=== PATIENT | female | born 1950 | race Caucasian/White ===

== ENCOUNTER → 2016-08-14 | Outpatient (REF) | payer MEDICARE | LOC: M SFHCPLAZ 16:08 | PROVIDERS: ATTEND Nurse Practitioner Family | DX: N76.0 Acute vaginitis (principal); Z12.4 Encounter for screening for malignant neoplasm of cervix | CPT/HCPCS: 87070; 87077; G0101; G0123 ==

== ENCOUNTER → 2016-11-13 | Outpatient (REF) | payer MEDICARE ==
[2016-11-13 13:48] LABS: CALCIUM OXALATE CRYSTALS SMALL
== END ==
LOC: M LAB REF 12:23
PROVIDERS: ATTEND Physician Assistant
DX: R10.2 Pelvic and perineal pain (principal)

== ENCOUNTER → 2016-11-18 | Outpatient (REF) | payer MEDICARE ==
[2016-11-18 17:39] LABS: CALCIUM OXALATE CRYSTALS LARGE
== END ==
LOC: M LAB REF 17:01
PROVIDERS: ATTEND Physician Assistant Medical
DX: N39.0 Urinary tract infection, site not specified (principal)

== ENCOUNTER → 2017-01-27 | Outpatient (REF) | payer MEDICARE ==
[2017-01-27 12:16] LABS: ALBUMIN 3.5 GM/DL (3.2-5.2); ALBUMIN/GLOBULIN RATIO 1.09 (1.00-1.93); ALKALINE PHOSPHATASE 119 U/L (45-117); ALT/SGPT 35 U/L (12-78); ANION GAP 9 MEQ/L (8-16); AST/SGOT 19 U/L (15-37); BILIRUBIN,TOTAL 0.6 MG/DL (0.2-1.0); BLOOD UREA NITROGEN 17 MG/DL (7-18); CARBON DIOXIDE LEVEL 27 MEQ/L (21-32); CHLORIDE LEVEL 109 MEQ/L (98-107); CHOLESTEROL LEVEL 99 MG/DL (<200); CREATININE FOR GFR 0.73 MG/DL (0.55-1.02); GLOMERULAR FILTRATION RATE > 60.0 (>45); GLUCOSE, FASTING 124 MG/DL (80-110); POTASSIUM SERUM 4.2 MEQ/L (3.5-5.1); SODIUM LEVEL 145 MEQ/L (136-145); TOTAL PROTEIN 6.7 GM/DL (6.4-8.2); TRIGLYCERIDES LEVEL 225 MG/DL (<150)
== END ==
LOC: M SFHCPLAZ 07:58
PROVIDERS: ATTEND Nurse Practitioner Family
DX: I25.10 Atherosclerotic heart disease of native coronary artery without angina pectoris (principal); E55.9 Vitamin D deficiency, unspecified

== ENCOUNTER → 2017-07-24 | Outpatient (REF) | payer MEDICARE ==
[2017-07-24 12:43] LABS: ALBUMIN 4.1 GM/DL (3.2-5.2); ALBUMIN/GLOBULIN RATIO 1.37 (1.00-1.93); ALKALINE PHOSPHATASE 128 U/L (45-117); ALT/SGPT 30 U/L (12-78); ANION GAP 7 MEQ/L (8-16); AST/SGOT 18 U/L (7-37); BILIRUBIN,TOTAL 0.7 MG/DL (0.2-1.0); BLOOD UREA NITROGEN 17 MG/DL (7-18); CALCIUM LEVEL 9.1 MG/DL (8.8-10.2); CARBON DIOXIDE LEVEL 31 MEQ/L (21-32); CHLORIDE LEVEL 108 MEQ/L (98-107); CREATININE FOR GFR 0.74 MG/DL (0.55-1.30); GLOMERULAR FILTRATION RATE > 60.0 (>45); GLUCOSE, FASTING 109 MG/DL (70-100); POTASSIUM SERUM 4.3 MEQ/L (3.5-5.1); SODIUM LEVEL 146 MEQ/L (136-145); TOTAL PROTEIN 7.1 GM/DL (6.4-8.2)
== END ==
LOC: M SFHCPLAZ 09:34
DX: I25.10 Atherosclerotic heart disease of native coronary artery without angina pectoris (principal)
CPT/HCPCS: 80053

== ENCOUNTER → 2017-08-04 | Outpatient (CLI) | payer MEDICARE | LOC: M RAD 09:57 | DX: R05 Cough (principal) | CPT/HCPCS: 71046 ==

== ENCOUNTER → 2017-08-07 | Outpatient (CLI) | payer MEDICARE | LOC: M RAD 09:08 | DX: Z12.2 Encounter for screening for malignant neoplasm of respiratory organs (principal); R91.8 Other nonspecific abnormal finding of lung field; Z87.891 Personal history of nicotine dependence | CPT/HCPCS: G0297 ==

== ENCOUNTER → 2017-10-27 | Outpatient (REF) | payer MEDICARE ==
[2017-10-27 12:57] LABS: ALBUMIN 3.7 GM/DL (3.2-5.2); ALBUMIN/GLOBULIN RATIO 1.16 (1.00-1.93); ALKALINE PHOSPHATASE 110 U/L (45-117); ALT/SGPT 31 U/L (12-78); ANION GAP 7 MEQ/L (8-16); AST/SGOT 19 U/L (7-37); BILIRUBIN,TOTAL 0.5 MG/DL (0.2-1.0); BLOOD UREA NITROGEN 17 MG/DL (7-18); CALCIUM LEVEL 9.1 MG/DL (8.8-10.2); CARBON DIOXIDE LEVEL 30 MEQ/L (21-32); CHLORIDE LEVEL 110 MEQ/L (98-107); CREATININE FOR GFR 0.74 MG/DL (0.55-1.30); GLOMERULAR FILTRATION RATE > 60.0 (>45); GLUCOSE, FASTING 110 MG/DL (70-100); POTASSIUM SERUM 3.9 MEQ/L (3.5-5.1); SODIUM LEVEL 147 MEQ/L (136-145); TOTAL PROTEIN 6.9 GM/DL (6.4-8.2)
[2017-10-28 10:20] LABS: TOTAL 25(OH) VITAMIN D 21.8 NG/ML (30.0-100.0)
== END ==
LOC: M SFHCPLAZ 09:45
DX: E55.9 Vitamin D deficiency, unspecified (principal); I10 Essential (primary) hypertension
CPT/HCPCS: 80053

== ENCOUNTER → 2017-11-14 | Outpatient (CLI) | payer MEDICARE ==
[2017-11-14 09:20] LABS: CREATININE FOR GFR 0.77 MG/DL (0.55-1.30); GLOMERULAR FILTRATION RATE > 60.0 (>45)
[2017-11-14 09:20] LABS: BLOOD UREA NITROGEN 14 MG/DL (7-18)
== END ==
LOC: M LAB 08:20
DX: R91.8 Other nonspecific abnormal finding of lung field (principal)
CPT/HCPCS: 82565

== ENCOUNTER → 2017-11-17 | Outpatient (CLI) | payer MEDICARE ==
[~2017-11-17] MED LIST: ISOVUE-370 76% 100ML VIAL (Q9967) As Ordered
== END ==
LOC: M RAD 12:31
DX: R91.8 Other nonspecific abnormal finding of lung field (principal)
CPT/HCPCS: Q9967

== ENCOUNTER → 2018-01-29 | Outpatient (CLI) | payer MEDICARE ==
[2018-01-29 10:15] LABS: ALBUMIN 3.8 GM/DL (3.2-5.2); ALBUMIN/GLOBULIN RATIO 1.12 (1.00-1.93); ALKALINE PHOSPHATASE 100 U/L (45-117); ALT/SGPT 46 U/L (12-78); ANION GAP 7 MEQ/L (8-16); AST/SGOT 25 U/L (7-37); BILIRUBIN,TOTAL 0.6 MG/DL (0.2-1.0); BLOOD UREA NITROGEN 18 MG/DL (7-18); CALCIUM LEVEL 8.5 MG/DL (8.8-10.2); CARBON DIOXIDE LEVEL 29 MEQ/L (21-32); CHLORIDE LEVEL 109 MEQ/L (98-107); CHOLESTEROL LEVEL 127 MG/DL (<200); CHOLESTEROL RISK RATIO 3.527 (<5); CREATININE FOR GFR 0.78 MG/DL (0.55-1.30); GLOMERULAR FILTRATION RATE > 60.0 (>45); GLUCOSE, FASTING 114 MG/DL (70-100); HDL CHOLESTEROL 36 MG/DL (>40); LDL CHOLESTEROL 31.2 MG/DL (<100); NON-HDL-C 91 MG/DL; POTASSIUM SERUM 4.4 MEQ/L (3.5-5.1); SODIUM LEVEL 145 MEQ/L (136-145); TOTAL PROTEIN 7.2 GM/DL (6.4-8.2); TRIGLYCERIDES LEVEL 299 MG/DL (<150)
[2018-01-29 10:22] LABS: MALB URINE SIEMENS 57.8 MG/L; MAU/CREAT RATIO 44.8 MCG/MG (0.0-30.0)
[2018-01-29 14:01] LABS: TOTAL 25(OH) VITAMIN D 35.5 NG/ML (30.0-100.0)
== END ==
LOC: M LAB 09:31
DX: I11.9 Hypertensive heart disease without heart failure (principal); E55.9 Vitamin D deficiency, unspecified
CPT/HCPCS: 80053

== ENCOUNTER → 2018-02-02 | Outpatient (REF) | payer MEDICARE ==
[2018-02-02 12:50] LABS: ALBUMIN 3.8 GM/DL (3.2-5.2); ALBUMIN/GLOBULIN RATIO 1.19 (1.00-1.93); ALKALINE PHOSPHATASE 104 U/L (45-117); ALT/SGPT 48 U/L (12-78); ANION GAP 8 MEQ/L (8-16); AST/SGOT 25 U/L (7-37); BILIRUBIN,TOTAL 0.5 MG/DL (0.2-1.0); BLOOD UREA NITROGEN 17 MG/DL (7-18); CALCIUM LEVEL 9.2 MG/DL (8.8-10.2); CARBON DIOXIDE LEVEL 28 MEQ/L (21-32); CHLORIDE LEVEL 111 MEQ/L (98-107); CHOLESTEROL LEVEL 125 MG/DL (<200); CHOLESTEROL RISK RATIO 3.906 (<5); CREATININE FOR GFR 0.72 MG/DL (0.55-1.30); GLOMERULAR FILTRATION RATE > 60.0 (>45); GLUCOSE, FASTING 113 MG/DL (70-100); HDL CHOLESTEROL 32 MG/DL (>40); LDL CHOLESTEROL 19.4 MG/DL (<100); NON-HDL-C 93 MG/DL; POTASSIUM SERUM 3.8 MEQ/L (3.5-5.1); SODIUM LEVEL 147 MEQ/L (136-145); TRIGLYCERIDES LEVEL 368 MG/DL (<150)
[2018-02-02 13:09] LABS: MALB URINE SIEMENS 60.6 MG/L; MAU/CREAT RATIO 38.8 MCG/MG (0.0-30.0)
== END ==
LOC: M SFHCPLAZ 09:26
DX: E55.9 Vitamin D deficiency, unspecified (principal); I10 Essential (primary) hypertension; I25.10 Atherosclerotic heart disease of native coronary artery without angina pectoris
CPT/HCPCS: 80053

== ENCOUNTER → 2018-03-18 | Outpatient (REF) | payer MEDICARE | LOC: M SFHCLERA 13:10 | DX: C43.62 Malignant melanoma of left upper limb, including shoulder (principal) | CPT/HCPCS: 88305 ==

== ENCOUNTER → 2018-04-28 | Outpatient (REF) | payer MEDICARE | LOC: M LAB REF 16:04 | DX: C43.62 Malignant melanoma of left upper limb, including shoulder (principal) | CPT/HCPCS: 88305 ==

== ENCOUNTER → 2018-05-11 | Outpatient (REF) | payer MEDICARE ==
[2018-05-11 12:51] LABS: ALBUMIN 3.7 GM/DL (3.2-5.2); ALBUMIN/GLOBULIN RATIO 1.32 (1.00-1.93); ALKALINE PHOSPHATASE 94 U/L (45-117); ALT/SGPT 36 U/L (12-78); ANION GAP 5 MEQ/L (8-16); AST/SGOT 18 U/L (7-37); BILIRUBIN,TOTAL 0.4 MG/DL (0.2-1.0); BLOOD UREA NITROGEN 14 MG/DL (7-18); CALCIUM LEVEL 9.2 MG/DL (8.8-10.2); CARBON DIOXIDE LEVEL 30 MEQ/L (21-32); CHLORIDE LEVEL 108 MEQ/L (98-107); CREATININE FOR GFR 0.77 MG/DL (0.55-1.30); GLOMERULAR FILTRATION RATE > 60.0 (>45); GLUCOSE, FASTING 131 MG/DL (70-100); POTASSIUM SERUM 4.5 MEQ/L (3.5-5.1); SODIUM LEVEL 143 MEQ/L (136-145); TOTAL 25(OH) VITAMIN D 33.3 NG/ML (30.0-100.0); TOTAL PROTEIN 6.5 GM/DL (6.4-8.2)
== END ==
LOC: M SFHCPLAZ 09:03
DX: I10 Essential (primary) hypertension (principal); E55.9 Vitamin D deficiency, unspecified
CPT/HCPCS: 80053

== ENCOUNTER → 2018-06-24 | Outpatient (REF) | payer MEDICARE | LOC: M SFHCPLAZ 11:11 | PROVIDERS: ATTEND Dermatology | DX: C43.62 Malignant melanoma of left upper limb, including shoulder (principal); L90.5 Scar conditions and fibrosis of skin; L57.0 Actinic keratosis ==

== ENCOUNTER → 2018-08-04 | Outpatient (REF) | payer MEDICARE | LOC: M SFHCPLAZ 09:57 | PROVIDERS: ATTEND Dermatology | DX: D23.62 Other benign neoplasm of skin of left upper limb, including shoulder (principal) ==

== ENCOUNTER → 2018-09-01 | Outpatient (REF) | payer MEDICARE ==
[2018-09-01 13:40] LABS: ALT/SGPT 34 U/L (12-78); BILIRUBIN,TOTAL 0.5 MG/DL (0.2-1.0); BLOOD UREA NITROGEN 17 MG/DL (7-18); CARBON DIOXIDE LEVEL 27 MEQ/L (21-32); CHLORIDE LEVEL 109 MEQ/L (98-107); CREATININE FOR GFR 0.71 MG/DL (0.55-1.30); GLOMERULAR FILTRATION RATE > 60.0 (>45); GLUCOSE, FASTING 108 MG/DL (70-100); POTASSIUM SERUM 4.5 MEQ/L (3.5-5.1); SODIUM LEVEL 144 MEQ/L (136-145); TOTAL 25(OH) VITAMIN D 29.7 NG/ML (30.0-100.0)
== END ==
LOC: M SFHCPLAZ 09:21
PROVIDERS: ATTEND Nurse Practitioner Family
DX: I10 Essential (primary) hypertension (principal); E55.9 Vitamin D deficiency, unspecified

== ENCOUNTER → 2018-09-17 | Outpatient (REF) | payer MEDICARE | LOC: M SFHCPLAZ 16:17 | PROVIDERS: ATTEND Nurse Practitioner Family | DX: L65.9 Nonscarring hair loss, unspecified (principal); Z53.8 Procedure and treatment not carried out for other reasons ==

== ENCOUNTER → 2018-09-18 | Outpatient (REF) | payer MEDICARE ==
[2018-09-18 12:20] LABS: ALT/SGPT 35 U/L (12-78); BILIRUBIN,TOTAL 0.6 MG/DL (0.2-1.0); BLOOD UREA NITROGEN 20 MG/DL (7-18); CALCIUM LEVEL 9.1 MG/DL (8.8-10.2); CARBON DIOXIDE LEVEL 29 MEQ/L (21-32); CHLORIDE LEVEL 109 MEQ/L (98-107); CHOLESTEROL LEVEL 128 MG/DL (<200); CHOLESTEROL RISK RATIO 3.368 (<5); GLOMERULAR FILTRATION RATE > 60.0 (>45); GLUCOSE, FASTING 112 MG/DL (70-100); HDL CHOLESTEROL 38 MG/DL (>40); LDL CHOLESTEROL 64 MG/DL (<100); NON-HDL-C 90 MG/DL; POTASSIUM SERUM 4.6 MEQ/L (3.5-5.1); SODIUM LEVEL 145 MEQ/L (136-145); TOTAL 25(OH) VITAMIN D 34.6 NG/ML (30.0-100.0); TOTAL PROTEIN 6.7 GM/DL (6.4-8.2); TRIGLYCERIDES LEVEL 131 MG/DL (<150)
[2018-09-18 12:36] LABS: MALB URINE SIEMENS 50.1 MG/L; MAU/CREAT RATIO 47.2 MCG/MG (0.0-30.0)
== END ==
LOC: M SFHCPLAZ 09:14
PROVIDERS: ATTEND Nurse Practitioner Family
DX: I10 Essential (primary) hypertension (principal); I25.10 Atherosclerotic heart disease of native coronary artery without angina pectoris; E55.9 Vitamin D deficiency, unspecified

== ENCOUNTER → 2018-09-24 | Outpatient (REF) | payer MEDICARE | LOC: M SFHCPLAZ 18:01 | PROVIDERS: ATTEND Dermatology | DX: D23.5 Other benign neoplasm of skin of trunk (principal) ==

== ENCOUNTER → 2019-01-06 | Outpatient (REF) | payer MEDICARE | LOC: M SFHCPLAZ 18:04 | PROVIDERS: ATTEND Dermatology | DX: L81.4 Other melanin hyperpigmentation (principal) ==

== ENCOUNTER → 2019-01-18 | Outpatient (REF) | payer MEDICARE ==
[2019-01-18 12:18] LABS: HEMATOCRIT 44.8 % (36.0-47.0); HEMOGLOBIN 14.8 g/dl (12.0-15.5); MEAN CORPUSCULAR HEMOGLOBIN 30.6 pg (27.0-33.0); MEAN CORPUSCULAR VOLUME 92.6 fl (80.0-96.0); PLATELET COUNT, AUTOMATED 189 10^3/uL (150-450); RED BLOOD COUNT 4.84 10^6/uL (4.00-5.40); WHITE BLOOD COUNT 8.4 10^3/uL (4.0-10.0)
[2019-01-18 12:51] LABS: THYROID STIMULATING HORMONE 0.646 uIU/ML (0.358-3.740)
== END ==
LOC: M SFHCPLAZ 10:23
PROVIDERS: ATTEND Nurse Practitioner Family
DX: L65.9 Nonscarring hair loss, unspecified (principal)

== ENCOUNTER → 2019-01-21 | Outpatient (REF) | payer MEDICARE ==
[2019-01-21 13:23] LABS: HEMOGLOBIN A1c 6.8 %
[2019-01-21 13:38] LABS: ALT/SGPT 34 U/L (12-78); BILIRUBIN,TOTAL 0.5 MG/DL (0.2-1.0); BLOOD UREA NITROGEN 16 MG/DL (7-18); CALCIUM LEVEL 9.5 MG/DL (8.8-10.2); CARBON DIOXIDE LEVEL 30 MEQ/L (21-32); CHLORIDE LEVEL 109 MEQ/L (98-107); CREATININE FOR GFR 0.74 MG/DL (0.55-1.30); GLOMERULAR FILTRATION RATE > 60.0 (>45); GLUCOSE, FASTING 107 MG/DL (70-100); POTASSIUM SERUM 3.8 MEQ/L (3.5-5.1); SODIUM LEVEL 143 MEQ/L (136-145); TOTAL PROTEIN 6.7 GM/DL (6.4-8.2)
== END ==
LOC: M SFHCPLAZ 10:27
PROVIDERS: ATTEND Nurse Practitioner Family
DX: I10 Essential (primary) hypertension (principal); I25.10 Atherosclerotic heart disease of native coronary artery without angina pectoris; R73.01 Impaired fasting glucose

== ENCOUNTER 2019-05-23 09:14 | Emergency (ER) | payer MEDICARE ==
[~2019-05-23] VITALS: Ht 162.6 cm; Wt 72.7 kg
--- NOTE | 2019-05-23 10:00 | ECGEPIP ---
[facility] - ED Test Date: 2019-05-23 Pat Name: VINICIUS DELACRUZ Department: Room: - Gender: Female Nurse'S Assistant: cameron : 1950 Requested By: Jo Perez Order Number: [id number] Reading MD: Jo Perez Measurements Intervals [place] Rate: 57 P: 61 TX: 157 QRS: 4 QRSD: 86 T: 34 QT: 404 QTc: 394 Interpretive Statements SINUS BRADYCARDIA WITH MARKED SINUS ARRHYTHMIA INTERPRETATION BASED ON A DEFAULT AGE OF 40 YEARS PRIOR ACUTE ISCHEMIA INFERIOR 02/13/15 Electronically Signed on 05-23-2019 10:00:30 EST by Jo Perez
[2019-05-23 10:04] LABS: BASO % 0.4 % (0.0-1.0); EOS # 0.1 10^3/uL (0.0-0.5); EOS % 0.8 % (0.0-3.0); HEMATOCRIT 44.1 % (36.0-47.0); HEMOGLOBIN 14.2 g/dl (12.0-15.5); LYMPH # 1.9 10^3/uL (1.5-5.0); LYMPH % 25.5 % (24.0-44.0); MEAN CORPUSCULAR HEMOGLOBIN 29.9 pg (27.0-33.0); MEAN CORPUSCULAR HGB CONC 32.2 g/dl (32.0-36.5); MEAN CORPUSCULAR VOLUME 92.8 fl (80.0-96.0); MONO # 0.6 10^3/uL (0.0-0.8); MONO % 7.5 % (0.0-5.0); NEUTROPHILS # 4.7 10^3/uL (1.5-8.5); NEUTROPHILS % 65.1 % (36.0-66.0); PLATELET COUNT, AUTOMATED 159 10^3/uL (150-450); RED BLOOD COUNT 4.75 10^6/uL (4.00-5.40); WHITE BLOOD COUNT 7.3 10^3/uL (4.0-10.0)
[2019-05-23 10:37] LABS: ALBUMIN 3.5 GM/DL (3.2-5.2); ALT/SGPT 36 U/L (12-78); BILIRUBIN,DIRECT < 0.1 MG/DL (0.0-0.2); BILIRUBIN,TOTAL 0.4 MG/DL (0.2-1.0); BLOOD UREA NITROGEN 15 MG/DL (7-18); CALCIUM LEVEL 8.7 MG/DL (8.8-10.2); CARBON DIOXIDE LEVEL 29 MEQ/L (21-32); CHLORIDE LEVEL 110 MEQ/L (98-107); CK-MB VALUE MASS < 1.0 NG/ML (<3.6); CPK CREATINE PHOSPHOKINASE 77 U/L (26-192); CREATININE FOR GFR 0.85 MG/DL (0.55-1.30); FREE T4 0.94 NG/DL (0.76-1.46); GLOMERULAR FILTRATION RATE > 60.0 (>45); GLUCOSE, FASTING 172 MG/DL (70-100); SODIUM LEVEL 145 MEQ/L (136-145); THYROID STIMULATING HORMONE 0.476 uIU/ML (0.358-3.740); TOTAL PROTEIN 6.4 GM/DL (6.4-8.2); TROPONIN I < 0.02 NG/ML (< 0.10)
[2019-05-23 11:27] VITALS: BP 178/79
[2019-05-23 11:53] LABS: HEMOGLOBIN A1c 6.1 %
== END 2019-05-23 11:31 | disposition home or self-care (01) ==
LOC: M ED 09:14
DX: R53.83 Other fatigue (principal); I25.10 Atherosclerotic heart disease of native coronary artery without angina pectoris; I21.9 Acute myocardial infarction, unspecified; Z95.5 Presence of coronary angioplasty implant and graft; Z86.14 Personal history of Methicillin resistant Staphylococcus aureus infection; Z85.820 Personal history of malignant melanoma of skin; Z87.891 Personal history of nicotine dependence; Z91.048 Other nonmedicinal substance allergy status

== ENCOUNTER 2019-08-10 10:11 | Day surgery (SDC) | payer MEDICARE ==
[~2019-08-10] VITALS: Ht 162.6 cm; Wt 71.7 kg
[~2019-08-10 10:11] MED LIST changes: +ASPI81TA85 PO; +BRONCHW PO; +D 202000 PO; +HYDR-3363 PO; -ISOVUE-370 76% 100ML VIAL (Q9967) As Ordered; +LOSA25TA14 PO; +METF500T13 PO; +METO25TA4 PO; +NITR0.4S14 SL; +SIMV40TA20 PO; +VITA100066 PO; +VITA500T PO
[2019-08-10] MEDS ORDERED: NS 1,000 ML IV ONE (11:00)
[2019-08-10] MEDS ORDERED: LIDOCAINE 2% INJ 100 MG/5 ML SDV (FOR ANES.) As Ordered ONE (12:10)
[2019-08-10] MEDS ORDERED: propofoL 500 MG/50 ML VIAL As Ordered ONE ×2 (12:10→12:45)
--- NOTE | 2019-08-10 12:50 | ROOR ---
Patient Name: Laura Hector Procedure Date: 08/10/2019 12:05 PM Date of : 1950 Age: 68 Room: [facility] Gender: Female Note Status: Finalized Procedure: Colonoscopy Indications: High risk colon cancer surveillance: Personal history of colonic polyps, Last colonoscopy: February 2016 Providers: Edy TOBIN MD Referring MD: Krysten Lee Do, [facility] Requesting Provider: Medicines: Monitored Anesthesia Care Complications: No immediate complications. Procedure: Pre-Anesthesia Assessment: - The heart rate, respiratory rate, oxygen saturations, blood pressure, adequacy of pulmonary ventilation, and response to care were monitored throughout the procedure. The Colonoscope was introduced through the anus and advanced to 5 cm into the ileum. The colonoscopy was performed without difficulty. The patient tolerated the procedure well. The quality of the bowel preparation was good. Findings: The perianal and digital rectal examinations were normal. Four semi-pedunculated polyps were found in the sigmoid colon. The polyps were 4 to 9 mm in size. These polyps were removed with a hot snare. Resection and retrieval were complete. Five sessile polyps were found in the rectum. The polyps were diminutive in size. These polyps were removed with a cold snare. Resection and retrieval were complete. Four sessile polyps were found in the ascending colon. The polyps were diminutive in size. These polyps were removed with a cold snare. Resection and retrieval were complete. Mild sigmoid diverticulosis and small internal hemorrhoids. Impression: - Four 4 to 9 mm polyps in the sigmoid colon, removed with a hot snare. Resected and retrieved. - Five diminutive polyps in the rectum, removed with a cold snare. Resected and retrieved. - Four diminutive polyps in the ascending colon, removed with a cold snare. Resected and retrieved. - Mild sigmoid diverticulosis and small internal hemorrhoids. Recommendation: - Telephone endoscopist for pathology results in 2 weeks. - If the pathology report reveals adenomatous tissue, then repeat the colonoscopy for surveillance in 3 years. - No ibuprofen, naproxen, or other non-steroidal anti-inflammatory drugs for 10 days after polyp removal. Edy Tobin MD Edy TOBIN MD 08/10/2019 12:50:11 PM Electronically signed by Edy TOBIN MD Number of Addenda: 0 Note Initiated On: 08/10/2019 12:05 PM Estimated Blood Loss: Estimated blood loss: none.
[2019-08-10 13:10] VITALS: BP 130/69
== END 2019-08-10 16:57 | disposition home or self-care (01) ==
LOC: M OPP 10:11
PROVIDERS: ATTEND Internal Medicine Gastroenterology
DX: Z12.11 Encounter for screening for malignant neoplasm of colon (principal); Z86.010 Personal history of colon polyps; D12.5 Benign neoplasm of sigmoid colon; D12.2 Benign neoplasm of ascending colon; K62.1 Rectal polyp; K57.30 Diverticulosis of large intestine without perforation or abscess without bleeding; K64.8 Other hemorrhoids; I34.2 Nonrheumatic mitral (valve) stenosis; Z95.5 Presence of coronary angioplasty implant and graft; I25.2 Old myocardial infarction; Z79.82 Long term (current) use of aspirin; Z79.899 Other long term (current) drug therapy; Z91.040 Latex allergy status; Z91.048 Other nonmedicinal substance allergy status

== ENCOUNTER → 2019-08-24 | Outpatient (REF) | payer MEDICARE | LOC: M SFHCPLAZ 15:02 | PROVIDERS: ATTEND Family Medicine | DX: R73.03 Prediabetes (principal); I10 Essential (primary) hypertension; Z13.220 Encounter for screening for lipoid disorders ==

== ENCOUNTER → 2019-11-29 | Outpatient (REF) | payer MEDICARE ==
[~2019-11-29] MED LIST changes: +VITA-243 PO; -VITA500T PO
[2019-11-29 11:22] LABS: ALBUMIN 3.9 GM/DL (3.2-5.2); ALT/SGPT 30 U/L (12-78); BILIRUBIN,TOTAL 0.5 MG/DL (0.2-1.0); BLOOD UREA NITROGEN 14 MG/DL (7-18); CALCIUM LEVEL 9.5 MG/DL (8.8-10.2); CARBON DIOXIDE LEVEL 33 MEQ/L (21-32); CHLORIDE LEVEL 108 MEQ/L (98-107); CHOLESTEROL LEVEL 115 MG/DL (<200); CHOLESTEROL RISK RATIO 3.382 (<5); CREATININE FOR GFR 0.75 MG/DL (0.55-1.30); GLOMERULAR FILTRATION RATE > 60.0 (>39); GLUCOSE, FASTING 112 MG/DL (70-100); HDL CHOLESTEROL 34 MG/DL (>40); LDL CHOLESTEROL 42 MG/DL (<100); NON-HDL-C 81 MG/DL; POTASSIUM SERUM 3.7 MEQ/L (3.5-5.1); SODIUM LEVEL 144 MEQ/L (136-145); TOTAL PROTEIN 6.9 GM/DL (6.4-8.2); TRIGLYCERIDES LEVEL 194 MG/DL (<150)
[2019-11-29 13:01] LABS: HEMOGLOBIN A1c 6.5 %
== END ==
LOC: M SFHCPLAZ 09:50
PROVIDERS: ATTEND Family Medicine
DX: R73.03 Prediabetes (principal); I10 Essential (primary) hypertension; Z13.220 Encounter for screening for lipoid disorders

== ENCOUNTER → 2019-12-14 | Outpatient (REF) | payer MEDICARE | LOC: M LAB REF 17:42 | PROVIDERS: ATTEND Dermatology | DX: L72.9 Follicular cyst of the skin and subcutaneous tissue, unspecified (principal) ==

== ENCOUNTER → 2020-01-11 | Outpatient (REF) | payer MEDICARE ==
[~2020-01-11] MED LIST changes: -ASPI81TA85 PO; +ASPI81TA86 PO
== END ==
LOC: M LAB REF 15:36
PROVIDERS: ATTEND Dermatology
DX: S29.022A Laceration of muscle and tendon of back wall of thorax, initial encounter (principal); X58.XXXA Exposure to other specified factors, initial encounter; Y92.89 Other specified places as the place of occurrence of the external cause

== ENCOUNTER → 2020-05-18 | Outpatient (CLI) | payer MEDICARE ==
[2020-05-18 17:20] LABS: ALBUMIN 3.7 GM/DL (3.2-5.2); ALT/SGPT 39 U/L (12-78); BILIRUBIN,TOTAL 0.4 MG/DL (0.2-1.0); BLOOD UREA NITROGEN 16 MG/DL (7-18); CALCIUM LEVEL 9.3 MG/DL (8.8-10.2); CARBON DIOXIDE LEVEL 29 MEQ/L (21-32); CHLORIDE LEVEL 107 MEQ/L (98-107); CHOLESTEROL LEVEL 125 MG/DL (<200); CHOLESTEROL RISK RATIO 3.906 (<5); CREATININE FOR GFR 0.92 MG/DL (0.55-1.30); GLOMERULAR FILTRATION RATE > 60.0 (>39); GLUCOSE, FASTING 207 MG/DL (70-100); HDL CHOLESTEROL 32 MG/DL (>40); LDL CHOLESTEROL 26 MG/DL (<100); NON-HDL-C 93 MG/DL; POTASSIUM SERUM 4.4 MEQ/L (3.5-5.1); SODIUM LEVEL 142 MEQ/L (136-145); TOTAL PROTEIN 6.7 GM/DL (6.4-8.2); TRIGLYCERIDES LEVEL 337 MG/DL (<150)
[2020-05-18 20:31] LABS: HEMOGLOBIN A1c 6.8 %
== END ==
LOC: M PLALAB 09:50
PROVIDERS: ATTEND Student in an Organized Health Care Education/Training Program
DX: I25.10 Atherosclerotic heart disease of native coronary artery without angina pectoris (principal); I10 Essential (primary) hypertension; E11.9 Type 2 diabetes mellitus without complications

== ENCOUNTER → 2020-08-28 | Outpatient (CLI) | payer MEDICARE ==
[2020-08-28 10:53] LABS: ALBUMIN 3.9 GM/DL (3.2-5.2); ALT/SGPT 32 U/L (12-78); BILIRUBIN,TOTAL 0.5 MG/DL (0.2-1.0); BLOOD UREA NITROGEN 12 MG/DL (7-18); CALCIUM LEVEL 9.1 MG/DL (8.8-10.2); CARBON DIOXIDE LEVEL 32 MEQ/L (21-32); CHLORIDE LEVEL 111 MEQ/L (98-107); CHOLESTEROL LEVEL 127 MG/DL (<200); CHOLESTEROL RISK RATIO 3.735 (<5); CREATININE FOR GFR 0.74 MG/DL (0.55-1.30); GLOMERULAR FILTRATION RATE > 60.0 (>39); GLUCOSE, FASTING 132 MG/DL (70-100); HDL CHOLESTEROL 34 MG/DL (>40); LDL CHOLESTEROL 49 MG/DL (<100); NON-HDL-C 93 MG/DL; POTASSIUM SERUM 4.6 MEQ/L (3.5-5.1); SODIUM LEVEL 145 MEQ/L (136-145); TRIGLYCERIDES LEVEL 222 MG/DL (<150)
== END ==
LOC: M PLALAB 08:21
PROVIDERS: ATTEND Student in an Organized Health Care Education/Training Program
DX: I10 Essential (primary) hypertension (principal); E11.9 Type 2 diabetes mellitus without complications

== ENCOUNTER → 2020-11-17 | Outpatient (REF) | payer MEDICARE | LOC: M LAB REF 14:01 | PROVIDERS: ATTEND Physician Assistant | DX: L57.0 Actinic keratosis (principal) ==

== ENCOUNTER → 2020-11-22 | Outpatient (REF) | payer MEDICARE ==
[2020-11-22 19:18] LABS: MAU/CREAT RATIO 82.4 MCG/MG (0.0-30.0)
[2020-11-22 20:22] LABS: HEMOGLOBIN A1c 6.2 %
== END ==
LOC: M SFHCPLAZ 11:44
PROVIDERS: ATTEND Student in an Organized Health Care Education/Training Program
DX: E11.9 Type 2 diabetes mellitus without complications (principal)

== ENCOUNTER → 2020-12-19 | Outpatient (CLI) | payer MEDICARE ==
--- NOTE | 2020-12-19 10:59 | REP ---
INDICATION: SHOULDER PAIN COMPARISON: None. TECHNIQUE: Three views right shoulder. FINDINGS: There is no evidence of acute fracture, dislocation, or intrinsic bone disease.There is moderate narrowing of the acromioclavicular joint. IMPRESSION: No fracture or dislocation. Degenerative changes acromioclavicular joint. <Electronically signed by Bhupendra Villa > 12/19/20 [id number]
== END ==
LOC: M PLAIMG 10:19
PROVIDERS: ATTEND Student in an Organized Health Care Education/Training Program
DX: M19.011 Primary osteoarthritis, right shoulder (principal); M75.91 Shoulder lesion, unspecified, right shoulder

== ENCOUNTER → 2021-01-04 | Outpatient (REF) | payer MEDICARE | LOC: M LAB REF 17:17 | PROVIDERS: ATTEND Internal Medicine Nephrology | DX: E11.22 Type 2 diabetes mellitus with diabetic chronic kidney disease (principal); E83.42 Hypomagnesemia ==

== ENCOUNTER → 2021-01-17 | Outpatient (CLI) | payer MEDICARE ==
--- NOTE | 2021-01-17 13:36 | REP ---
INDICATION: CALCULUS OF KIDNEY. COMPARISON: Abdomen/pelvis CT dated 08/21/2011. TECHNIQUE: Multiple ultrasonographic images of the kidneys. FINDINGS: The comparison CT demonstrated multiple nonobstructive small bilateral renal calculi in addition to an obstructive calculus in the distal right ureter. On the study today the right kidney measures 9.8 x 5.5 x 5.3 cm. The left kidney measures 10.3 x 4.2 x 5.6 cm. The kidneys are normal size. Renal cortical echogenicity is normal bilaterally. There is no hydronephrosis or hydroureter on the right or the left. There are multiple small echogenic foci in the kidneys bilaterally measuring 6-8 mm in diameter with acoustic shadowing and twinkle artifact, shadow compatible with multiple nonobstructive renal calculi bilaterally. No solid renal masses are identified. Bladder: The bladder is incompletely distended, however, with Doppler ultrasound are able to identify bilateral ureteral jets. IMPRESSION: Multiple small renal calculi bilaterally with no evidence of hydronephrosis on the right or the left. There are bilateral ureteral jets into the bladder. <Electronically signed by Bhupendra Sutherland > 01/17/21 [id number]
== END ==
LOC: M RAD 10:07
PROVIDERS: ATTEND Internal Medicine Nephrology
DX: N20.0 Calculus of kidney (principal)

== ENCOUNTER → 2021-03-26 | Outpatient (REF) | payer MEDICARE ==
[2021-03-26 18:23] LABS: BACTERIA, URINE AUTO NEGATIVE (NEGATIVE); RBC, URINE AUTO 5 /HPF (0-3); SQUAMOUS EPITHELIAL CELL UR AU 1 /HPF (0-6); WBC, URINE AUTO 11 /HPF (0-3)
[2021-03-26 18:26] LABS: TOTAL PROTEIN,RANDOM URINE 17.4 MG/DL (0.0-12.0)
== END ==
LOC: M LAB REF 16:51
PROVIDERS: ATTEND Internal Medicine Nephrology
DX: E11.22 Type 2 diabetes mellitus with diabetic chronic kidney disease (principal); E83.42 Hypomagnesemia

== ENCOUNTER → 2021-04-02 | Outpatient (CLI) | payer MEDICARE ==
[2021-04-02 18:34] LABS: HEMOGLOBIN A1c 6.2 %
[2021-04-02 18:50] LABS: MAU/CREAT RATIO 125.8 MCG/MG (0.0-30.0)
== END ==
LOC: M PLALAB 14:23
PROVIDERS: ATTEND Student in an Organized Health Care Education/Training Program
DX: E55.9 Vitamin D deficiency, unspecified (principal); E11.9 Type 2 diabetes mellitus without complications

== ENCOUNTER → 2021-04-25 | Outpatient (CLI) | payer MEDICARE ==
[2021-04-25 11:08] LABS: APPEARANCE, URINE HAZY (CLEAR); BACTERIA, URINE AUTO NEGATIVE (NEGATIVE); BILIRUBIN, URINE AUTO NEGATIVE (NEGATIVE); BLOOD, URINE BLOOD 2+ (NEGATIVE); COLOR, URINE YELLOW (YELLOW); GLUCOSE, URINE (UA) AUTO NEGATIVE (NEGATIVE); KETONE, URINE AUTO NEGATIVE (NEGATIVE); LEUKOCYTE ESTERASE, URINE AUTO 2+ (NEGATIVE); MUCUS, URINE SMALL (NEGATIVE); NITRITE, URINE AUTO NEGATIVE (NEGATIVE); PROTEIN, URINE AUTO 1+ mg/dL (NEGATIVE); RBC, URINE AUTO 19 /HPF (0-3); SPECIFIC GRAVITY URINE AUTO 1.018 (1.002-1.035); SQUAMOUS EPITHELIAL CELL UR AU 1 /HPF (0-6); UROBILINOGEN, URINE AUTO 0.2 mg/dL (0.0-2.0); WBC, URINE AUTO 15 /HPF (0-3)
[2021-04-25 11:22] LABS: BLOOD UREA NITROGEN 14 MG/DL (7-18); CALCIUM LEVEL 9.4 MG/DL (8.8-10.2); CARBON DIOXIDE LEVEL 31 MEQ/L (21-32); CHLORIDE LEVEL 108 MEQ/L (98-107); CREATININE FOR GFR 0.78 MG/DL (0.55-1.30); GLOMERULAR FILTRATION RATE > 60.0 (>39); GLUCOSE, FASTING 124 MG/DL (70-100); POTASSIUM SERUM 4.3 MEQ/L (3.5-5.1); SODIUM LEVEL 142 MEQ/L (136-145)
== END ==
LOC: M PLALAB 08:59
PROVIDERS: ATTEND Nurse Practitioner Women's Health
DX: R31.29 Other microscopic hematuria (principal)

== ENCOUNTER → 2021-04-30 | Outpatient (CLI) | payer MEDICARE ==
[~2021-04-30] MED LIST changes: +ISOVUE-370 76% 100ML VIAL As Ordered ONE
--- NOTE | 2021-04-30 10:35 | REP ---
INDICATION: HEMATURIA. COMPARISON: 08/21/2011 a noncontrast enhanced exam and of only prior TECHNIQUE: Standard helical technique before and after the intravenous administration of 100 cc Isovue 370. FINDINGS: There are chronic lung base changes status quo. The pre contrast enhanced portion examination again shows numerous bilateral calculi of various sizes. These are too numerous to count or individually assess. They range in size from a mm to a cm. There is no evidence of hydronephrosis or hydroureter. There are numerous bilateral pelvic phleboliths status quo. Multiple metallic radiodensities are again seen in the right posterior Nora renal space status quo. The contrast-enhanced portion examination again shows multiple bilateral renal cysts. There is no evidence of an enhancing renal mass. There is cholelithiasis. The liver, spleen, pancreas, and adrenal glands are within normal limits. The abdominal aorta and para-aortic regions are within normal limits. There is calcific atherosclerotic change. There is no free fluid or free air. There is descending colon and sigmoid colon diverticulosis. The bowel loops and the mesenteries are otherwise unremarkable. 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 The contrast pacified portions of the collecting system bilaterally show no focal filling defects. There is no hydronephrosis. A small portion of each distal ureter is non-opacified likely due to normal peristaltic activity. The a pacified portion of the urinary bladder shows no evidence of a filling defect. Bone window technique throughout the exam shows the osseous structures to be within normal limits for the patient's age. IMPRESSION: 1. Bilateral nonobstructing nephroliths. 2. Bilateral renal cysts. 3. No evidence of an enhancing renal mass or renal collecting system abnormality with findings as described above. 4. Cholelithiasis. 5. Colonic diverticulosis as described above. 6. Other findings as described above. <Electronically signed by Ace Joseph > 04/30/21 [id number]
== END ==
LOC: M RAD 09:40
PROVIDERS: ATTEND Nurse Practitioner Women's Health
DX: R31.9 Hematuria, unspecified (principal)
CPT/HCPCS: 74178; Q9967

== ENCOUNTER → 2021-05-21 | Outpatient (REF) | payer MEDICARE ==
[~2021-05-21] MED LIST changes: -ISOVUE-370 76% 100ML VIAL As Ordered ONE
[2021-05-21 18:29] LABS: AMORPHOUS SEDIMENT SMALL (NEGATIVE); APPEARANCE, URINE HAZY (CLEAR); BACTERIA, URINE AUTO NEGATIVE (NEGATIVE); BILIRUBIN, URINE AUTO NEGATIVE (NEGATIVE); BLOOD, URINE BLOOD 2+ (NEGATIVE); COLOR, URINE YELLOW (YELLOW); GLUCOSE, URINE (UA) AUTO NEGATIVE (NEGATIVE); KETONE, URINE AUTO NEGATIVE (NEGATIVE); LEUKOCYTE ESTERASE, URINE AUTO 3+ (NEGATIVE); MUCUS, URINE SMALL (NEGATIVE); NITRITE, URINE AUTO NEGATIVE (NEGATIVE); PROTEIN, URINE AUTO 1+ mg/dL (NEGATIVE); RBC, URINE AUTO 59 /HPF (0-3); SPECIFIC GRAVITY URINE AUTO 1.018 (1.002-1.035); SQUAMOUS EPITHELIAL CELL UR AU 1 /HPF (0-6); UROBILINOGEN, URINE AUTO 0.2 mg/dL (0.0-2.0); WBC, URINE AUTO 23 /HPF (0-3)
== END ==
LOC: M SMT 17:22
PROVIDERS: ATTEND Urology
DX: R31.29 Other microscopic hematuria (principal)

== ENCOUNTER → 2021-12-25 | Outpatient (REF) | payer MEDICARE ==
[~2021-12-25] MED LIST changes: +LOSA25TA13 PO; -LOSA25TA14 PO
[2021-12-25 21:07] LABS: POTASSIUM SERUM 3.9 MEQ/L (3.5-5.1)
== END ==
LOC: M LAB REF 18:02
PROVIDERS: ATTEND Internal Medicine Nephrology
DX: E11.22 Type 2 diabetes mellitus with diabetic chronic kidney disease (principal); I12.9 Hypertensive chronic kidney disease with stage 1 through stage 4 chronic kidney disease, or unspecified chronic kidney disease

== ENCOUNTER → 2022-01-01 | Outpatient (REF) | payer MEDICARE ==
[2022-01-01 14:16] LABS: APPEARANCE, URINE HAZY (CLEAR); BACTERIA, URINE AUTO 1+ (NEGATIVE); BILIRUBIN, URINE AUTO NEGATIVE (NEGATIVE); BLOOD, URINE BLOOD 2+ (NEGATIVE); COLOR, URINE YELLOW (YELLOW); GLUCOSE, URINE (UA) AUTO NEGATIVE (NEGATIVE); KETONE, URINE AUTO NEGATIVE (NEGATIVE); LEUKOCYTE ESTERASE, URINE AUTO 3+ (NEGATIVE); MUCUS, URINE SMALL (NEGATIVE); NITRITE, URINE AUTO NEGATIVE (NEGATIVE); PROTEIN, URINE AUTO 1+ mg/dL (NEGATIVE); RBC, URINE AUTO 11 /HPF (0-3); SPECIFIC GRAVITY URINE AUTO 1.019 (1.002-1.035); SQUAMOUS EPITHELIAL CELL UR AU 2 /HPF (0-6); UROBILINOGEN, URINE AUTO 0.2 mg/dL (0.0-2.0); WBC, URINE AUTO 32 /HPF (0-3)
== END ==
LOC: M SMT 12:45
PROVIDERS: ATTEND Urology
DX: R31.29 Other microscopic hematuria (principal)

== ENCOUNTER → 2022-05-22 | Outpatient (REF) | payer MEDICARE | LOC: M SFHCDERM 09:13 | PROVIDERS: ATTEND Physician Assistant | DX: D23.62 Other benign neoplasm of skin of left upper limb, including shoulder (principal) ==

== ENCOUNTER → 2022-10-28 | Outpatient (CLI) | payer MEDICARE ==
[2022-10-28 10:42] LABS: HEMOGLOBIN A1c 6.7 % (4.0-6.0)
[2022-10-28 11:02] LABS: ALBUMIN 3.6 G/DL (3.2-5.2); ALKALINE PHOSPHATASE 145 U/L (46-116); ALT/SGPT 35 U/L (7.0-40); AST/SGOT 22 U/L (<34); BILIRUBIN,TOTAL 0.5 MG/DL (0.3-1.2); BLOOD UREA NITROGEN 17 MG/DL (9-23); CALCIUM LEVEL 9.1 MG/DL (8.3-10.6); CARBON DIOXIDE LEVEL 29 MMOL/L (20-31); CHLORIDE LEVEL 108 MMOL/L (98-107); CHOLESTEROL LEVEL 125 MG/DL (<200); CREATININE FOR GFR 0.73 MG/DL (0.55-1.30); GLOMERULAR FILTRATION RATE > 60.0 (>39); GLUCOSE, FASTING 123 MG/DL (74-106); HDL CHOLESTEROL 34.7 MG/DL (>40); LDL CHOLESTEROL 51.5 MG/DL (<100); NON-HDL-C 90.3 MG/DL; POTASSIUM SERUM 4.7 MMOL/L (3.5-5.1); SODIUM LEVEL 143 MMOL/L (136-145); TOTAL PROTEIN 6.4 G/DL (5.7-8.2); TRIGLYCERIDES LEVEL 194 MG/DL (<150)
[2022-10-28 11:03] LABS: TOTAL 25(OH) VITAMIN D 30.3 NG/ML (20.0-100.0)
[2022-10-28 14:23] LABS: CREATININE, URINE 72.6 MG/DL; MAU/CREAT RATIO 107.4 MCG/MG (0.0-30.0)
== END ==
LOC: M PLALAB 08:19
PROVIDERS: ATTEND Student in an Organized Health Care Education/Training Program
DX: I25.10 Atherosclerotic heart disease of native coronary artery without angina pectoris (principal); E55.9 Vitamin D deficiency, unspecified; E11.9 Type 2 diabetes mellitus without complications

== ENCOUNTER → 2022-10-29 | Outpatient (REF) | payer MEDICARE | LOC: M SFHCPLAZ 13:43 | PROVIDERS: ATTEND Family Medicine | DX: R74.8 Abnormal levels of other serum enzymes (principal) ==

== ENCOUNTER → 2022-11-19 | Outpatient (REF) | payer MEDICARE | LOC: M SFHCPLAZ 17:26 | PROVIDERS: ATTEND Student in an Organized Health Care Education/Training Program | DX: T88.7XXA Unspecified adverse effect of drug or medicament, initial encounter (principal) ==

== ENCOUNTER → 2023-01-30 | Outpatient (CLI) | payer MEDICARE ==
[2023-01-30 14:34] LABS: APPEARANCE, URINE HAZY (CLEAR); BACTERIA, URINE AUTO 1+ (NEGATIVE); BILIRUBIN, URINE AUTO NEGATIVE (NEGATIVE); BLOOD, URINE BLOOD 1+ (NEGATIVE); COLOR, URINE YELLOW (YELLOW); GLUCOSE, URINE (UA) AUTO 3+ mg/dL (NEGATIVE); KETONE, URINE AUTO NEGATIVE (NEGATIVE); LEUKOCYTE ESTERASE, URINE AUTO 3+ (NEGATIVE); MUCUS, URINE SMALL (NEGATIVE); NITRITE, URINE AUTO NEGATIVE (NEGATIVE); PROTEIN, URINE AUTO 1+ mg/dL (NEGATIVE); RBC, URINE AUTO 11 /HPF (0-3); SPECIFIC GRAVITY URINE AUTO 1.028 (1.002-1.035); SQUAMOUS EPITHELIAL CELL UR AU 7 /HPF (0-6); UROBILINOGEN, URINE AUTO 0.2 mg/dL (0.0-2.0); WBC, URINE AUTO 53 /HPF (0-3)
== END ==
LOC: M PLALAB 08:09
PROVIDERS: ATTEND Student in an Organized Health Care Education/Training Program
DX: T88.7XXA Unspecified adverse effect of drug or medicament, initial encounter (principal)

== ENCOUNTER → 2023-01-30 | Outpatient (CLI) | payer MEDICARE | LOC: M PLAIMG 08:12 | PROVIDERS: ATTEND Urology | DX: N20.0 Calculus of kidney (principal) ==

== ENCOUNTER → 2023-02-12 | Outpatient (REF) | payer MEDICARE ==
[2023-02-12 17:59] LABS: BACTERIA, URINE AUTO NEGATIVE (NEGATIVE); MUCUS, URINE SMALL (NEGATIVE); RBC, URINE AUTO 5 /HPF (0-3); SQUAMOUS EPITHELIAL CELL UR AU 7 /HPF (0-6); WBC, URINE AUTO 12 /HPF (0-3)
== END ==
LOC: M LAB REF 17:02
PROVIDERS: ATTEND Internal Medicine Nephrology
DX: R31.29 Other microscopic hematuria (principal)

== ENCOUNTER → 2023-05-06 | Outpatient (CLI) | payer MEDICARE | LOC: M RAD 11:12 | PROVIDERS: ATTEND Internal Medicine Nephrology | DX: N20.0 Calculus of kidney (principal) ==

== ENCOUNTER → 2023-06-18 | Outpatient (CLI) | payer MEDICARE ==
[~2023-06-18] MED LIST changes: +ASPI81TA26 PO; +JARD1TAB PO; +VITA100093 PO
[2023-06-18 14:15] LABS: HEMATOCRIT 47.1 % (36.0-47.0); HEMOGLOBIN 14.9 g/dl (12.0-15.5); MEAN CORPUSCULAR HGB CONC 31.6 g/dl (32.0-36.5); MEAN CORPUSCULAR VOLUME 91.8 fl (80.0-96.0); PLATELET COUNT, AUTOMATED 197 10^3/uL (150-450); RED BLOOD COUNT 5.13 10^6/uL (4.00-5.40)
[2023-06-18 14:19] LABS: APPEARANCE, URINE CLEAR (CLEAR); BACTERIA, URINE AUTO 1+ (NEGATIVE); BILIRUBIN, URINE AUTO NEGATIVE (NEGATIVE); BLOOD, URINE BLOOD NEGATIVE (NEGATIVE); COLOR, URINE YELLOW (YELLOW); GLUCOSE, URINE (UA) AUTO 3+ mg/dL (NEGATIVE); KETONE, URINE AUTO NEGATIVE (NEGATIVE); LEUKOCYTE ESTERASE, URINE AUTO 2+ (NEGATIVE); MUCUS, URINE SMALL (NEGATIVE); NITRITE, URINE AUTO NEGATIVE (NEGATIVE); PROTEIN, URINE AUTO NEGATIVE (NEGATIVE); RBC, URINE AUTO 2 /HPF (0-3); SPECIFIC GRAVITY URINE AUTO 1.026 (1.002-1.035); SQUAMOUS EPITHELIAL CELL UR AU 1 /HPF (0-6); UROBILINOGEN, URINE AUTO 0.2 mg/dL (0.0-2.0); WBC, URINE AUTO 13 /HPF (0-3)
[2023-06-18 14:48] LABS: BLOOD UREA NITROGEN 21 MG/DL (9-23); CALCIUM LEVEL 9.6 MG/DL (8.3-10.6); CARBON DIOXIDE LEVEL 29 MMOL/L (20-31); CHLORIDE LEVEL 107 MMOL/L (98-107); CREATININE FOR GFR 0.76 MG/DL (0.55-1.30); GLOMERULAR FILTRATION RATE > 60.0 (>39); GLUCOSE, FASTING 97 MG/DL (74-106); POTASSIUM SERUM 4.4 MMOL/L (3.5-5.1); SODIUM LEVEL 144 MMOL/L (136-145)
== END ==
LOC: M PLAIMG 11:22
PROVIDERS: ATTEND Physician Assistant
DX: Z01.818 Encounter for other preprocedural examination (principal); Z79.899 Other long term (current) drug therapy

== ENCOUNTER 2023-06-26 05:56 | Day surgery (SDC) | payer MEDICARE ==
[~2023-06-26] VITALS: Ht 162.6 cm; Wt 71.6 kg
[2023-06-26] MEDS ORDERED: LR 1,000 ML IV SCH (06:40)
[2023-06-26] MEDS: ceFAZolin SOD 2 GM in IV 1 EA IV ONE (07:30)
[2023-06-26] MEDS ORDERED: fentaNYL 100 MCG/2 ML INJECTION As Ordered ONE (07:45)
[2023-06-26] MEDS ORDERED: propofoL 200 MG/20 ML VIAL As Ordered ONE (07:45)
[2023-06-26] MEDS ORDERED: LIDOCAINE 2% 100MG/5ML SDV (FOR ANES.) As Ordered ONE (07:45)
[2023-06-26] MEDS ORDERED: MIDAZOLAM INJ 2MG/2ML VIAL As Ordered ONE (07:45)
[2023-06-26] MEDS ORDERED: KETOROLAC 60MG 2ML VIAL As Ordered ONE (07:45)
[2023-06-26] MEDS ORDERED: HYDR-3713 PO (07:48)
[2023-06-26 08:10] VITALS: BP 158/71; TEMP 98.2; O2SAT 96
== END 2023-06-26 08:35 | disposition home or self-care (01) ==
LOC: M SDC 05:56 → UNDOADMIN 06:36 → M OR 06:36 → M SDC 08:35
PROVIDERS: ATTEND Urology
DX: N20.0 Calculus of kidney (principal); I10 Essential (primary) hypertension; E11.9 Type 2 diabetes mellitus without complications; I25.2 Old myocardial infarction; Z79.899 Other long term (current) drug therapy; Z85.820 Personal history of malignant melanoma of skin; Z95.5 Presence of coronary angioplasty implant and graft; E78.00 Pure hypercholesterolemia, unspecified; Z79.82 Long term (current) use of aspirin; Z90.49 Acquired absence of other specified parts of digestive tract
CPT/HCPCS: 50590; 74018; J0690; J1885; J2250; J3010

== ENCOUNTER → 2023-07-17 | Outpatient (CLI) | payer MEDICARE ==
[~2023-07-17] MED LIST changes: +HYDR-3713 PO
== END ==
LOC: M RAD 10:09
PROVIDERS: ATTEND Physician Assistant
DX: N20.0 Calculus of kidney (principal)

== ENCOUNTER → 2023-07-18 | Outpatient (REF) | payer MEDICARE | LOC: M SMT 16:52 | PROVIDERS: ATTEND Physician Assistant | DX: N20.0 Calculus of kidney (principal) ==

== ENCOUNTER → 2023-09-19 | Outpatient (CLI) | payer MEDICARE ==
[2023-09-19 10:55] LABS: HEMOGLOBIN 16.1 g/dl (12.0-15.5); MEAN CORPUSCULAR HEMOGLOBIN 29.8 pg (27.0-33.0); MEAN CORPUSCULAR HGB CONC 31.6 g/dl (32.0-36.5); MEAN CORPUSCULAR VOLUME 94.3 fl (80.0-96.0); PLATELET COUNT, AUTOMATED 174 10^3/uL (150-450); RED BLOOD COUNT 5.41 10^6/uL (4.00-5.40)
[2023-09-19 11:08] LABS: HEMOGLOBIN A1c 6.4 % (4.0-6.0)
[2023-09-19 11:25] LABS: BLOOD UREA NITROGEN 18 MG/DL (9-23); CALCIUM LEVEL 9.7 MG/DL (8.3-10.6); CARBON DIOXIDE LEVEL 30 MMOL/L (20-31); CHLORIDE LEVEL 108 MMOL/L (98-107); CHOLESTEROL LEVEL 112 MG/DL (<200); CHOLESTEROL RISK RATIO 3.58 (<5); CREATININE FOR GFR 0.81 MG/DL (0.55-1.30); GLOMERULAR FILTRATION RATE > 60.0 (>39); GLUCOSE, FASTING 138 MG/DL (74-106); HDL CHOLESTEROL 31.2 MG/DL (>40); LDL CHOLESTEROL 40.6 MG/DL (<100); NON-HDL-C 80.8 MG/DL; POTASSIUM SERUM 4.4 MMOL/L (3.5-5.1); PTH INTACT 89.6 PG/ML (18.5-88.0); SODIUM LEVEL 141 MMOL/L (136-145); TRIGLYCERIDES LEVEL 201 MG/DL (<150)
[2023-09-19 11:28] LABS: TOTAL 25(OH) VITAMIN D 38.6 NG/ML (20.0-100.0)
== END ==
LOC: M PLALAB 08:21
PROVIDERS: ATTEND Student in an Organized Health Care Education/Training Program
DX: Z00.00 Encounter for general adult medical examination without abnormal findings (principal); N20.0 Calculus of kidney; E11.9 Type 2 diabetes mellitus without complications; Z79.899 Other long term (current) drug therapy

== ENCOUNTER → 2024-03-15 | Outpatient (CLI) | payer MEDICARE | LOC: M PLAIMG 08:57 | PROVIDERS: ATTEND Physician Assistant | DX: N20.0 Calculus of kidney (principal) ==

== ENCOUNTER → 2024-03-17 | Outpatient (CLI) | payer MEDICARE ==
[2024-03-17 15:51] LABS: HEMOGLOBIN A1c 6.4 % (4.0-6.0)
[2024-03-17 16:03] LABS: HDL CHOLESTEROL 29.7 MG/DL (>40); LDL CHOLESTEROL 28.9 MG/DL (<100); NON-HDL-C 89.3 MG/DL
== END ==
LOC: M PLALAB 11:58
PROVIDERS: ATTEND Student in an Organized Health Care Education/Training Program
DX: E78.5 Hyperlipidemia, unspecified (principal); E11.9 Type 2 diabetes mellitus without complications

== ENCOUNTER → 2024-09-14 | Outpatient (CLI) | payer MEDICARE | LOC: M RAD 08:57 | PROVIDERS: ATTEND Physician Assistant | DX: N20.0 Calculus of kidney (principal) ==

== ENCOUNTER → 2025-06-15 | Outpatient (CLI) | payer MEDICARE, MEDICAID ==
[2025-06-15 14:07] LABS: BASO # 0.1 10^3/uL (0.0-0.2); BASO % 0.6 % (0.0-1.0); EOS # 0.1 10^3/uL (0.0-0.5); EOS % 0.9 % (0.0-3.0); LYMPH # 2.4 10^3/uL (1.5-5.0); LYMPH % 24.0 % (24.0-44.0); MONO # 0.7 10^3/uL (0.0-0.8); MONO % 7.3 % (2.0-8.0); NEUTROPHILS # 6.5 10^3/uL (1.5-8.5); NEUTROPHILS % 66.3 % (36.0-66.0); PLATELET COUNT, AUTOMATED 221 10^3/uL (150-450)
[2025-06-15 14:14] LABS: ALT/SGPT 33.0 U/L (7.0-40); AST/SGOT 20.0 U/L (<34); CALCIUM LEVEL 9.8 MG/DL (8.3-10.6); CARBON DIOXIDE LEVEL 32.0 MMOL/L (20-31); CHLORIDE LEVEL 103.0 MMOL/L (98-107); CHOLESTEROL LEVEL 125.0 MG/DL (<200); CHOLESTEROL RISK RATIO 3.81 (<5); CREATININE FOR GFR 0.83 MG/DL (0.55-1.30); GLOMERULAR FILTRATION RATE 73.5 (>39); LDL CHOLESTEROL 33.6 MG/DL (<100); NON-HDL-C 92.2 MG/DL; POTASSIUM SERUM 4.1 MMOL/L (3.5-5.1); SODIUM LEVEL 144.0 MMOL/L (136-145); TRIGLYCERIDES LEVEL 293.0 MG/DL (<150)
[2025-06-15 14:19] LABS: ESTIMATED AVERAGE GLUCOSE 160.0 MG/DL (60-110)
== END ==
LOC: M PLALAB 11:06
PROVIDERS: ATTEND Student in an Organized Health Care Education/Training Program
DX: Z00.00 Encounter for general adult medical examination without abnormal findings (principal); E11.9 Type 2 diabetes mellitus without complications